=== PATIENT | male | born 1980 | race Caucasian/White ===

== ENCOUNTER 2018-01-04 07:18 | Emergency (ER) | payer SELFPAY ==
[~2018-01-04] VITALS: Ht 175.3 cm; Wt 118.2 kg
[~2018-01-04 07:18] MED LIST: FLEXERIL PO; NAPROSYN500 MG PO
[2018-01-04 08:18] LABS: INFLUENZA A NONE DETECTED (NONE DETECT); INFLUENZA B NONE DETECTED (NONE DETECT)
[2018-01-04] MEDS ORDERED: TORADOL PO (09:02)
[2018-01-04] MEDS ORDERED: ZITHROMAX250 MG PO (09:02)
[2018-01-04 09:50] VITALS: BP 129/84
== END 2018-01-04 09:50 | disposition home or self-care (01) | DRG 153 ==
LOC: ED 07:18
PROVIDERS: Emergency Medicine
DX: J32.9 Chronic sinusitis, unspecified (principal); F17.210 Nicotine dependence, cigarettes, uncomplicated

== ENCOUNTER 2018-04-25 23:49 | Emergency (ER) | payer SELFPAY ==
[~2018-04-25] VITALS: Ht 175.3 cm; Wt 102.0 kg
[~2018-04-25 23:49] MED LIST changes: +TORADOL PO; +ZITHROMAX250 MG PO
[2018-04-26 00:31] VITALS: BP 130/68
== END 2018-04-26 00:25 | disposition home or self-care (01) | DRG 914 ==
LOC: ED 23:49
PROC: 0HQGXZZ Repair Left Hand Skin, External Approach (ICD-10-PCS; principal; 2018-04-26)
DX: S61.227A Laceration with foreign body of left little finger without damage to nail, initial encounter (principal); W31.2XXA Contact with powered woodworking and forming machines, initial encounter; Y93.89 Activity, other specified; Y92.009 Unspecified place in unspecified non-institutional (private) residence as the place of occurrence of the external cause

== ENCOUNTER 2022-04-23 09:36 | Emergency (ER) | payer SELFPAY ==
[~2022-04-23] VITALS: Ht 175.3 cm; Wt 109.0 kg
[2022-04-23 10:29] VITALS: BP 131/81
[2022-04-23 11:01] VITALS: BP 130/80
[2022-04-23] MEDS ORDERED: CLEOCIN300 MG PO (11:01)
[2022-04-23] MEDS ORDERED: AMOX/K CLAV875 M1 PO (11:01)
== END 2022-04-23 11:28 | disposition home or self-care (01) | DRG 159 ==
LOC: ED 09:36
DX: K08.89 Other specified disorders of teeth and supporting structures (principal); F17.210 Nicotine dependence, cigarettes, uncomplicated

== ENCOUNTER 2022-08-06 15:42 | Emergency (ER) | payer SELFPAY ==
[~2022-08-06] VITALS: Ht 175.3 cm; Wt 109.0 kg
[~2022-08-06 15:42] MED LIST changes: +AMOX/K CLAV875 M1 PO; +CLEOCIN300 MG PO
[2022-08-06 16:01] VITALS: BP 125/83
[2022-08-06 16:31] VITALS: BP 125/74
[2022-08-06 17:01] VITALS: BP 109/85
[2022-08-06 17:21] LABS: URINE BILIRUBIN - DIPSTICK NEGATIVE (NEGATIVE); URINE BLOOD DIPSTICK NEGATIVE (NEGATIVE); URINE COLOR YELLOW; URINE GLUCOSE - DIPSTICK NEGATIVE (NEGATIVE); URINE KETONE TRACE mg/dL (NEGATIVE); URINE LEUK ESTERASE NEGATIVE (NEGATIVE); URINE PH 6.5 (4.5-8.0); URINE PROTEIN - DIPSTICK NEGATIVE (NEG-TRACE); URINE SPECIFIC GRAVITY >=1.030; URINE UROBILINOGEN - DIPSTICK 0.2 E.U./dL (0.2)
[2022-08-06 17:31] VITALS: BP 109/69
[2022-08-06 17:55] LABS: URINE NITRITE - DIPSTICK NEGATIVE (Negative)
[2022-08-06 18:00] VITALS: BP 115/85
[2022-08-06] MEDS ORDERED: NAPROXEN500 MG PO (18:20)
[2022-08-06] MEDS ORDERED: VIBRAMYCIN100 M2 PO (18:20)
[2022-08-06 18:35] VITALS: BP 115/85
== END 2022-08-06 18:54 | disposition home or self-care (01) | DRG 728 ==
LOC: ED 15:42
PROVIDERS: Nurse Practitioner
DX: N45.1 Epididymitis (principal)